=== PATIENT | female | born 1990 | race Caucasian/White ===

== ENCOUNTER 2018-06-29 20:18 | Observation (INO) ==
--- NOTE | 2018-06-29 21:30 | Emergency Department Note ---
Disposition Clinical Impression: Depression Qualifiers: Depression Type: major depressive disorder Major depression recurrence: single episode Active/Remission status: currently active Major depression episode severity: mild Qualified Code(s): F32.0 - Major depressive disorder, single episode, mild Disposition: Still a Patient Referrals: NONE,PCP [Primary Care Provider] - Forms: ED Satisfaction Letter Time of Disposition: 23:53 General Adult HPI - General Chief complaint: ED Psychiatric Symptoms Stated complaint: "SI" Time Seen by Provider: 06/29/18 20:36 Source: patient Mode of arrival: ambulatory Limitations: no limitations - History of Present Illness HPI Narrative: This is a 28-year-old female who comes to emergency department reporting suicidal thoughts that are primarily associated with fear. She states she is living with a boyfriend that she refers to as her fiance, and that both she and her boyfriend are living with her sister. She states she has a history of opiate and methamphetamine use, and was clean for almost a 4 year until she and her boyfriend moved in with her sister earlier in 2018. She says that the sister has been using methamphetamine, and she started using amphetamines again as well. She says that the sister oftentimes puts her down and she feels very discouraged about it she feels like she might be better off if she went somewhere else. She apparently had another argument with her sister 2 days ago , that culminated in her her being arrested. She was released from [facility] earlier today. Pain Scale: 4 - Related Data Home Medications Medication Instructions Recorded Confirmed Gabapentin Enacarbil 10/19/15 Loratadine 10/19/15 Prenate Chewable Tablet 10/19/15 Prozac 10/19/15 10/19/15 Previous Rx's Medication Instructions Recorded Cefdinir [Omnicef] 300 mg PO BID #20 capsule 10/19/15 Ibuprofen [Motrin] 800 mg PO Q6-8H PRN #30 tablet 10/19/15 Ondansetron [Zofran] 8 mg PO TID PRN #9 tablet 10/19/15 Promethazine/Dextromethorphan 5 ml PO Q4H PRN #120 ml 10/19/15 [Promethazine-Dm Syrup] Allergies Allergy/AdvReac Type Severity Reaction Status Date / Time hydrocodone Allergy Swelling Verified 10/19/15 17:56 of Lip/Tongue/Throat All systems ED: reviewed and negative except as stated. Psychiatric: Reports: depression, suicidal thoughts Past Medical History - Past Medical History Medical history: Reports: no medical history Psychiatric history: Reports: anxiety, depression BUSINESS AND SERVICES INSTRUCTOR history: Reports: no BUSINESS AND SERVICES INSTRUCTOR history - Social History Smoking Status: Current every day smoker Smokeless Tobacco Status: No Alcohol use: Reports: none Drug use: Reports: marijuana, IV Drug Use Physical Exam - General Limitations: no limitations General appearance: alert, in no apparent distress - Head Head exam: atraumatic, normocephalic, normal inspection - Eye Eye exam: Present: normal appearance, PERRL, EOMI - Chest Chest inspection: Present: normal inspection, symmetric chest wall rise - Respiratory Respiratory exam: Present: normal lung sounds bilaterally - Cardiovascular Cardiovascular exam: Present: regular rate, normal rhythm, normal heart sounds - Abdominal Exam Abdominal exam: Present: soft, Non-Tender. Absent: tenderness, distention, guarding, rebound, rigidity - Extremities Exam Extremities exam: Present: normal inspection, full ROM. Absent: tenderness, pedal edema - Neurological Exam Neurological exam: Present: alert, oriented X3 - Psychiatric Psychiatric exam: Present: depressed, suicidal ideation, other (She reports insomnia with both difficulty getting to sleep and frequent awakenings, has normal appetite, appears to have enjoyable activities and is still looking forward to getting separate livingwith her boyfriend and possibly getting her 1- year-old son back from foster care.) - Skin Skin exam: Present: warm, dry, other (Multiple scarred areas of her veins because of prior IV drug use) Course Course Narrative: This is a 28-year-old female here with depression and suicidal ideation very nonsupportive living situation Vital Signs Temperature 98.2 F 06/29/18 20:27 Pulse Rate 101 06/29/18 20:27 Respiratory Rate 18 06/29/18 20:27 Blood Pressure 154/98 06/29/18 20:27 O2 Sat by Pulse Oximetry 100 06/29/18 20:27 Temperature 98.2 F 06/29/18 20:42 Pulse Rate 101 06/29/18 20:42 Respiratory Rate 18 06/29/18 20:42 Blood Pressure 154/98 06/29/18 20:42 O2 Sat by Pulse Oximetry 100 06/29/18 20:42 Oxygen Delivery Oxygen Delivery Room Air Medical Decision Making - MDM Narrative Medical decision making narrative: This is a 28-year-old female with an exam consistent with major depression and vague thoughts of suicide. She was interested and a psych consult. Psychiatry was called, but there are recommendation was not available at the time of signout to Dr. Ramirez. - Lab Data Lab results reviewed: Yes I reviewed the patient's lab results. Lab results narrative: CBC was unremarkable BMP was unremarkable UA was unremarkable Drug screen was positive for amphetamines Ethanol, Tylenol, and salicylates were low Result diagrams: 06/29/18 21:43 06/29/18 21:43 Lab Results 06/29/18 06/29/18 06/29/18 Range/Units 20:46 21:43 21:43 WBC 7.5 (4.3-11.1) K/mcL RBC 4.16 (3.82-4.97) M/mcL Hgb 12.1 (11.5-15.4) g/dL Hct 36.1 (35.3-44.9) % MCV 86.8 (83.0-100.0) fL MCH 29.1 (28.0-33.3) pg MCHC 33.5 (31.6-35.5) g/dL RDW 13.5 (11.5-14.5) % Plt Count 289 (140-400) K/mcL MPV 9.7 (9.4-12.4) fL Immature Gran % 0.3 (0-4) % Seg Neutrophils % 62.4 % Lymphocytes % 30.7 % Monocytes % 5.4 % Eosinophils % 0.8 % Basophils % 0.4 % Neutrophils # 4.7 (1.6-8.9) K/mcL Lymphocytes # 2.3 (0.6-4.6) K/mcL Monocytes # 0.4 (0.0-1.3) K/mcL Eosinophils # 0.1 (0.0-0.6) K/mcL Basophils # 0.0 (0.0-0.2) K/mcL Sodium 140 (136-145) mEq/L Potassium 3.6 (3.5-5.1) mEq/L Chloride 104 (98-107) mEq/L Carbon Dioxide 24 (23-29) mEq/L BUN 7 (6-20) mg/dL Creatinine 0.82 (0.60-1.20) mg/dL Est GFR ( Amer) > 60 (> 60) Est GFR (Non-Af Amer) > 60 (> 60) BUN/Creatinine Ratio 9 (6-26) Glucose 103 (70-105) mg/dL Calculated Osmolality 288 (280-300) Calcium 9.1 (8.6-10.3) mg/dL Urine Color Yellow (Yellow) Urine Clarity Cloudy A (Clear) Urine pH 6.0 (5.0-8.0) pH Units Ur Specific [place] 1.019 (1.010-1.025) Urine Protein Trace (Neg-Trace) mg/dL Urine Glucose (UA) Normal (Normal) mg/dL Urine Ketones Negative (Negative) mg/dL Urine Blood Negative (Negative) Urine Nitrite Negative (Negative) Urine Bilirubin Negative (Negative) Urine Urobilinogen Normal (Normal) mg/dL Ur Leukocyte Esterase Negative (Negative) Urine Microscopic RBC 0-3 (0-3) per hpf Urine Microscopic WBC 3-5 H (0-3) per hpf Ur Squamous Epith Cells Many H (None-Few) per lpf Urine Bacteria Few (None-Few) per hpf Salicylates < 2.5 L (15.0-30.0) mg/dL Urine Opiates Screen (Ifzzkd=345) ng/mL Acetaminophen < 10 L (10-20) mcg/mL Ur Barbiturates Screen (Pbfaul=084) ng/mL Ur Phencyclidine Scrn (Cutoff=25) ng/mL Ur Amphetamines Screen (Itnivr=1657) ng/mL U Benzodiazepines Scrn (Ipenqy=927) ng/mL Urine Cocaine Screen (Cutoff= 300) ng/mL U Marijuana (THC) Screen (Cutoff = 50) ng/mL Ur Drug Screen Interp Ethyl Alcohol < 10 (Less than 10) mg/dL 06/29/18 Range/Units 22:59 WBC (4.3-11.1) K/mcL RBC (3.82-4.97) M/mcL Hgb (11.5-15.4) g/dL Hct (35.3-44.9) % MCV (83.0-100.0) fL MCH (28.0-33.3) pg MCHC (31.6-35.5) g/dL RDW (11.5-14.5) % Plt Count (140-400) K/mcL MPV (9.4-12.4) fL Immature Gran % (0-4) % Seg Neutrophils % % Lymphocytes % % Monocytes % % Eosinophils % % Basophils % % Neutrophils # (1.6-8.9) K/mcL Lymphocytes # (0.6-4.6) K/mcL Monocytes # (0.0-1.3) K/mcL Eosinophils # (0.0-0.6) K/mcL Basophils # (0.0-0.2) K/mcL Sodium (136-145) mEq/L Potassium (3.5-5.1) mEq/L Chloride (98-107) mEq/L Carbon Dioxide (23-29) mEq/L BUN (6-20) mg/dL Creatinine (0.60-1.20) mg/dL Est GFR ( Amer) (> 60) Est GFR (Non-Af Amer) (> 60) BUN/Creatinine Ratio (6-26) Glucose (70-105) mg/dL Calculated Osmolality (280-300) Calcium (8.6-10.3) mg/dL Urine Color (Yellow) Urine Clarity (Clear) Urine pH (5.0-8.0) pH Units Ur Specific [place] (1.010-1.025) Urine Protein (Neg-Trace) mg/dL Urine Glucose (UA) (Normal) mg/dL Urine Ketones (Negative) mg/dL Urine Blood (Negative) Urine Nitrite (Negative) Urine Bilirubin (Negative) Urine Urobilinogen (Normal) mg/dL Ur Leukocyte Esterase (Negative) Urine Microscopic RBC (0-3) per hpf Urine Microscopic WBC (0-3) per hpf Ur Squamous Epith Cells (None-Few) per lpf Urine Bacteria (None-Few) per hpf Salicylates (15.0-30.0) mg/dL Urine Opiates Screen Negative (Xynjuf=961) ng/mL Acetaminophen (10-20) mcg/mL Ur Barbiturates Screen Negative (Hjjosx=361) ng/mL Ur Phencyclidine Scrn Negative (Cutoff=25) ng/mL Ur Amphetamines Screen Positive H (Dsaihy=6082) ng/mL U Benzodiazepines Scrn Negative (Erncpm=137) ng/mL Urine Cocaine Screen Negative (Cutoff= 300) ng/mL U Marijuana (THC) Screen Negative (Cutoff = 50) ng/mL Ur Drug Screen Interp See Below Ethyl Alcohol (Less than 10) mg/dL Critical Care Time Critical Care Time: No
[2018-06-29 21:57] LABS: Basophils % 0.4 %; Eosinophils # 0.1 K/mcL (0.0-0.6); Eosinophils % 0.8 %; Hematocrit 36.1 % (35.3-44.9); Hemoglobin 12.1 g/dL (11.5-15.4); Immature Granulocytes % 0.3 % (0-4); Lymphocytes # 2.3 K/mcL (0.6-4.6); Lymphocytes % 30.7 %; Mean Corpuscular HGB Conc 33.5 g/dL (31.6-35.5); Mean Corpuscular Hemoglobin 29.1 pg (28.0-33.3); Mean Corpuscular Volume 86.8 fL (83.0-100.0); Mean Platelet Volume 9.7 fL (9.4-12.4); Monocytes # 0.4 K/mcL (0.0-1.3); Monocytes % 5.4 %; Neutrophils # 4.7 K/mcL (1.6-8.9); Platelet Count 289 K/mcL (140-400); Red Blood Count 4.16 M/mcL (3.82-4.97); Red Cell Distribution Width 13.5 % (11.5-14.5); Segmented Neutrophils % 62.4 %
[2018-06-29 22:22] LABS: Bilirubin,Urine Negative (Negative); Blood,Urine Negative (Negative); Clarity,Urine Cloudy (Clear); Color,Urine Yellow (Yellow); Glucose,Urine (UA) Normal (Normal); Ketones,Urine Negative (Negative); Protein,Urine Trace mg/dL (Neg-Trace); Specific Gravity,Urine 1.019 (1.010-1.025)
[2018-06-29 22:23] LABS: Leukocyte Esterase,Urine Negative (Negative); Nitrite,Urine Negative (Negative); Urobilinogen,Urine Normal (Normal)
[2018-06-29 22:28] LABS: RBC,Urine 0-3 per hpf (0-3)
[2018-06-29 22:29] LABS: Bacteria,Urine Few per hpf (None-Few); Squamous Epithelial Cell,Urine Many per lpf (None-Few)
[2018-06-29 22:30] LABS: Acetaminophen < 10 mcg/mL (10-20); BUN/Creatinine Ratio 9 (6-26); Blood Urea Nitrogen 7 mg/dL (6-20); Calcium 9.1 mg/dL (8.6-10.3); Carbon Dioxide 24 mEq/L (23-29); Chloride 104 mEq/L (98-107); Ethanol < 10 mg/dL (Less than 10); Glucose 103 mg/dL (70-105); Osmolality,Calculated 288 (280-300); Potassium 3.6 mEq/L (3.5-5.1); Salicylate < 2.5 mg/dL (15.0-30.0); Sodium 140 mEq/L (136-145); eGFR For Non-African Americans > 60 (> 60)
[2018-06-29 23:46] LABS: Amphetamine Screen,Urine Positive ng/mL (Cutoff=1000); Barbiturate Screen,Urine Negative ng/mL (Cutoff=200); Benzodiazepines Screen,Urine Negative ng/mL (Cutoff=200); Cannabinoid Screen,Urine Negative ng/mL (Cutoff = 50); Cocaine Screen,Urine Negative ng/mL (Cutoff= 300); Opiate Screen,Urine Negative ng/mL (Cutoff=300); Phencyclidine Screen,Urine Negative ng/mL (Cutoff=25)
--- NOTE | 2018-06-30 00:06 | Emergency Department Note ---
Disposition Clinical Impression: Depression Qualifiers: Depression Type: major depressive disorder Major depression recurrence: single episode Active/Remission status: currently active Major depression episode severity: mild Qualified Code(s): F32.0 - Major depressive disorder, single episode, mild Disposition: Admitted As Inpatient Condition: Good Instructions: Depression (ED) Referrals: NONE,PCP [Primary Care Provider] - Forms: ED Satisfaction Letter Time of Disposition: 00:06 General Adult HPI - General Chief complaint: ED Psychiatric Symptoms Stated complaint: "SI" Time Seen by Provider: 06/29/18 20:36 Source: patient Mode of arrival: ambulatory Limitations: no limitations - History of Present Illness HPI Narrative: This is a note for disposition purposes only. Exm and other details on prior note Pain Scale: 4 - Related Data Home Medications Medication Instructions Recorded Confirmed Gabapentin Enacarbil 10/19/15 Loratadine 10/19/15 Prenate Chewable Tablet 10/19/15 Prozac 10/19/15 10/19/15 Previous Rx's Medication Instructions Recorded Cefdinir [Omnicef] 300 mg PO BID #20 capsule 10/19/15 Ibuprofen [Motrin] 800 mg PO Q6-8H PRN #30 tablet 10/19/15 Ondansetron [Zofran] 8 mg PO TID PRN #9 tablet 10/19/15 Promethazine/Dextromethorphan 5 ml PO Q4H PRN #120 ml 10/19/15 [Promethazine-Dm Syrup] Allergies Allergy/AdvReac Type Severity Reaction Status Date / Time hydrocodone Allergy Swelling Verified 10/19/15 17:56 of Lip/Tongue/Throat Psychiatric: Reports: depression, suicidal thoughts Past Medical History - Past Medical History Medical history: Reports: no medical history Psychiatric history: Reports: anxiety, depression TRAFFIC ASSISTANT history: Reports: no TRAFFIC ASSISTANT history - Social History Smoking Status: Current every day smoker Smokeless Tobacco Status: No Alcohol use: Reports: none Drug use: Reports: marijuana, IV Drug Use Physical Exam - General Limitations: no limitations General appearance: alert, in no apparent distress Course Vital Signs Temperature 98.2 F 06/29/18 20:27 Pulse Rate 101 06/29/18 20:27 Respiratory Rate 18 06/29/18 20:27 Blood Pressure 154/98 06/29/18 20:27 O2 Sat by Pulse Oximetry 100 06/29/18 20:27 Temperature 98.2 F 06/29/18 20:42 Pulse Rate 101 06/29/18 20:42 Respiratory Rate 18 06/29/18 20:42 Blood Pressure 154/98 06/29/18 20:42 O2 Sat by Pulse Oximetry 100 06/29/18 20:42 Oxygen Delivery Oxygen Delivery Room Air Medical Decision Making - Lab Data Result diagrams: 06/29/18 21:43 06/29/18 21:43 Lab Results 06/29/18 06/29/18 06/29/18 Range/Units 20:46 21:43 21:43 WBC 7.5 (4.3-11.1) K/mcL RBC 4.16 (3.82-4.97) M/mcL Hgb 12.1 (11.5-15.4) g/dL Hct 36.1 (35.3-44.9) % MCV 86.8 (83.0-100.0) fL MCH 29.1 (28.0-33.3) pg MCHC 33.5 (31.6-35.5) g/dL RDW 13.5 (11.5-14.5) % Plt Count 289 (140-400) K/mcL MPV 9.7 (9.4-12.4) fL Immature Gran % 0.3 (0-4) % Seg Neutrophils % 62.4 % Lymphocytes % 30.7 % Monocytes % 5.4 % Eosinophils % 0.8 % Basophils % 0.4 % Neutrophils # 4.7 (1.6-8.9) K/mcL Lymphocytes # 2.3 (0.6-4.6) K/mcL Monocytes # 0.4 (0.0-1.3) K/mcL Eosinophils # 0.1 (0.0-0.6) K/mcL Basophils # 0.0 (0.0-0.2) K/mcL Sodium 140 (136-145) mEq/L Potassium 3.6 (3.5-5.1) mEq/L Chloride 104 (98-107) mEq/L Carbon Dioxide 24 (23-29) mEq/L BUN 7 (6-20) mg/dL Creatinine 0.82 (0.60-1.20) mg/dL Est GFR ( Amer) > 60 (> 60) Est GFR (Non-Af Amer) > 60 (> 60) BUN/Creatinine Ratio 9 (6-26) Glucose 103 (70-105) mg/dL Calculated Osmolality 288 (280-300) Calcium 9.1 (8.6-10.3) mg/dL Urine Color Yellow (Yellow) Urine Clarity Cloudy A (Clear) Urine pH 6.0 (5.0-8.0) pH Units Ur Specific [place] 1.019 (1.010-1.025) Urine Protein Trace (Neg-Trace) mg/dL Urine Glucose (UA) Normal (Normal) mg/dL Urine Ketones Negative (Negative) mg/dL Urine Blood Negative (Negative) Urine Nitrite Negative (Negative) Urine Bilirubin Negative (Negative) Urine Urobilinogen Normal (Normal) mg/dL Ur Leukocyte Esterase Negative (Negative) Urine Microscopic RBC 0-3 (0-3) per hpf Urine Microscopic WBC 3-5 H (0-3) per hpf Ur Squamous Epith Cells Many H (None-Few) per lpf Urine Bacteria Few (None-Few) per hpf Salicylates < 2.5 L (15.0-30.0) mg/dL Urine Opiates Screen (Kbpkom=887) ng/mL Acetaminophen < 10 L (10-20) mcg/mL Ur Barbiturates Screen (Jnfjeq=240) ng/mL Ur Phencyclidine Scrn (Cutoff=25) ng/mL Ur Amphetamines Screen (Enlwor=7567) ng/mL U Benzodiazepines Scrn (Pkkums=699) ng/mL Urine Cocaine Screen (Cutoff= 300) ng/mL U Marijuana (THC) Screen (Cutoff = 50) ng/mL Ur Drug Screen Interp Ethyl Alcohol < 10 (Less than 10) mg/dL 06/29/18 Range/Units 22:59 WBC (4.3-11.1) K/mcL RBC (3.82-4.97) M/mcL Hgb (11.5-15.4) g/dL Hct (35.3-44.9) % MCV (83.0-100.0) fL MCH (28.0-33.3) pg MCHC (31.6-35.5) g/dL RDW (11.5-14.5) % Plt Count (140-400) K/mcL MPV (9.4-12.4) fL Immature Gran % (0-4) % Seg Neutrophils % % Lymphocytes % % Monocytes % % Eosinophils % % Basophils % % Neutrophils # (1.6-8.9) K/mcL Lymphocytes # (0.6-4.6) K/mcL Monocytes # (0.0-1.3) K/mcL Eosinophils # (0.0-0.6) K/mcL Basophils # (0.0-0.2) K/mcL Sodium (136-145) mEq/L Potassium (3.5-5.1) mEq/L Chloride (98-107) mEq/L Carbon Dioxide (23-29) mEq/L BUN (6-20) mg/dL Creatinine (0.60-1.20) mg/dL Est GFR ( Amer) (> 60) Est GFR (Non-Af Amer) (> 60) BUN/Creatinine Ratio (6-26) Glucose (70-105) mg/dL Calculated Osmolality (280-300) Calcium (8.6-10.3) mg/dL Urine Color (Yellow) Urine Clarity (Clear) Urine pH (5.0-8.0) pH Units Ur Specific [place] (1.010-1.025) Urine Protein (Neg-Trace) mg/dL Urine Glucose (UA) (Normal) mg/dL Urine Ketones (Negative) mg/dL Urine Blood (Negative) Urine Nitrite (Negative) Urine Bilirubin (Negative) Urine Urobilinogen (Normal) mg/dL Ur Leukocyte Esterase (Negative) Urine Microscopic RBC (0-3) per hpf Urine Microscopic WBC (0-3) per hpf Ur Squamous Epith Cells (None-Few) per lpf Urine Bacteria (None-Few) per hpf Salicylates (15.0-30.0) mg/dL Urine Opiates Screen Negative (Neglww=581) ng/mL Acetaminophen (10-20) mcg/mL Ur Barbiturates Screen Negative (Sxlumj=961) ng/mL Ur Phencyclidine Scrn Negative (Cutoff=25) ng/mL Ur Amphetamines Screen Positive H (Dcfyol=5809) ng/mL U Benzodiazepines Scrn Negative (Hljhzv=597) ng/mL Urine Cocaine Screen Negative (Cutoff= 300) ng/mL U Marijuana (THC) Screen Negative (Cutoff = 50) ng/mL Ur Drug Screen Interp See Below Ethyl Alcohol (Less than 10) mg/dL
[2018-06-30] MEDS ORDERED: *HR* LORazepam 1 MG TABLET PO PRN (01:05)
[2018-06-30] MEDS ORDERED: Mag Hydrox/Al Hydrox/Simeth 30 ML UDC PO PRN (01:05)
[2018-06-30] MEDS ORDERED: MOM Conc 10 ML UD.LIQ PO PRN (01:05)
[2018-06-30] MEDS ORDERED: *HR* LORazepam 2 MG/ML VIAL IM PRN (01:05)
[2018-06-30] MEDS ORDERED: traZODone 50 MG TABLET PO PRN (01:05)
[2018-06-30] MEDS ORDERED: Ibuprofen 400 MG TABLET PO PRN (01:05)
[2018-06-30] MEDS ORDERED: hydrOXYzine pamoate 25 MG CAPSULE PO PRN (01:05)
[2018-06-30] MEDS ORDERED: Haloperidol Lactate 5 MG/ML VIAL IM PRN (01:05)
--- NOTE | 2018-06-30 04:42 | Emergency Department Note ---
Disposition Clinical Impression: Depression Qualifiers: Depression Type: major depressive disorder Major depression recurrence: single episode Active/Remission status: currently active Major depression episode severity: mild Qualified Code(s): F32.0 - Major depressive disorder, single episode, mild Disposition: Admitted As Inpatient Condition: Good General Adult HPI - General Chief complaint: ED Psychiatric Symptoms Stated complaint: "SI" Time Seen by Provider: 06/29/18 20:36 Source: patient Mode of arrival: ambulatory Limitations: no limitations - History of Present Illness Pain Scale: 0 - Related Data Home Medications Medication Instructions Recorded Confirmed Gabapentin Enacarbil 10/19/15 Loratadine 10/19/15 Prenate Chewable Tablet 10/19/15 Prozac 10/19/15 10/19/15 Previous Rx's Medication Instructions Recorded Cefdinir [Omnicef] 300 mg PO BID #20 capsule 10/19/15 Ibuprofen [Motrin] 800 mg PO Q6-8H PRN #30 tablet 10/19/15 Ondansetron [Zofran] 8 mg PO TID PRN #9 tablet 10/19/15 Promethazine/Dextromethorphan 5 ml PO Q4H PRN #120 ml 10/19/15 [Promethazine-Dm Syrup] Allergies Allergy/AdvReac Type Severity Reaction Status Date / Time hydrocodone Allergy Swelling Verified 10/19/15 17:56 of Lip/Tongue/Throat Psychiatric: Reports: depression, suicidal thoughts Past Medical History - Past Medical History Medical history: Reports: no medical history Surgical history: Reports: , cholecystectomy Psychiatric history: Reports: anxiety, depression PIPE AND TANK FABRICATOR history: Reports: no PIPE AND TANK FABRICATOR history - Social History Smoking Status: Current every day smoker Smokeless Tobacco Status: No Alcohol use: Reports: none Drug use: Reports: marijuana, IV Drug Use Physical Exam - General Limitations: no limitations General appearance: alert, in no apparent distress Course Course Narrative: This patient was signed out to me at shift change from Dr. aparicio. Please refer to his note for complete details of the history and physical examination. At shift change patient is awaiting psychiatric evaluation by the [address] psychiatry service. Patient was seen and evaluated by the [address] psychiatry services and is being admitted to the [address] psychiatric unit. Vital Signs Temperature 98.2 F 06/29/18 20:27 Pulse Rate 101 06/29/18 20:27 Respiratory Rate 18 06/29/18 20:27 Blood Pressure 154/98 06/29/18 20:27 O2 Sat by Pulse Oximetry 100 06/29/18 20:27 Temperature 98.2 F 06/29/18 20:42 Pulse Rate 101 06/29/18 20:42 Respiratory Rate 20 06/30/18 00:17 Blood Pressure 132/90 06/30/18 00:17 O2 Sat by Pulse Oximetry 100 06/29/18 20:42 Oxygen Delivery Oxygen Delivery Room Air Medical Decision Making - Lab Data Result diagrams: 06/29/18 21:43 06/29/18 21:43 Lab Results 06/29/18 06/29/18 06/29/18 Range/Units 20:46 20:46 21:43 WBC 7.5 (4.3-11.1) K/mcL RBC 4.16 (3.82-4.97) M/mcL Hgb 12.1 (11.5-15.4) g/dL Hct 36.1 (35.3-44.9) % MCV 86.8 (83.0-100.0) fL MCH 29.1 (28.0-33.3) pg MCHC 33.5 (31.6-35.5) g/dL RDW 13.5 (11.5-14.5) % Plt Count 289 (140-400) K/mcL MPV 9.7 (9.4-12.4) fL Immature Gran % 0.3 (0-4) % Seg Neutrophils % 62.4 % Lymphocytes % 30.7 % Monocytes % 5.4 % Eosinophils % 0.8 % Basophils % 0.4 % Neutrophils # 4.7 (1.6-8.9) K/mcL Lymphocytes # 2.3 (0.6-4.6) K/mcL Monocytes # 0.4 (0.0-1.3) K/mcL Eosinophils # 0.1 (0.0-0.6) K/mcL Basophils # 0.0 (0.0-0.2) K/mcL Sodium (136-145) mEq/L Potassium (3.5-5.1) mEq/L Chloride (98-107) mEq/L Carbon Dioxide (23-29) mEq/L BUN (6-20) mg/dL Creatinine (0.60-1.20) mg/dL Est GFR ( Amer) (> 60) Est GFR (Non-Af Amer) (> 60) BUN/Creatinine Ratio (6-26) Glucose (70-105) mg/dL Calculated Osmolality (280-300) Calcium (8.6-10.3) mg/dL Urine Color Yellow (Yellow) Urine Clarity Cloudy A (Clear) Urine pH 6.0 (5.0-8.0) pH Units Ur Specific [place] 1.019 (1.010-1.025) Urine Protein Trace (Neg-Trace) mg/dL Urine Glucose (UA) Normal (Normal) mg/dL Urine Ketones Negative (Negative) mg/dL Urine Blood Negative (Negative) Urine Nitrite Negative (Negative) Urine Bilirubin Negative (Negative) Urine Urobilinogen Normal (Normal) mg/dL Ur Leukocyte Esterase Negative (Negative) Urine Microscopic RBC 0-3 (0-3) per hpf Urine Microscopic WBC 3-5 H (0-3) per hpf Ur Squamous Epith Cells Many H (None-Few) per lpf Urine Bacteria Few (None-Few) per hpf Urine Test Negative (Negative) Salicylates (15.0-30.0) mg/dL Urine Opiates Screen (Jrpgzs=430) ng/mL Acetaminophen (10-20) mcg/mL Ur Barbiturates Screen (Oycavk=996) ng/mL Ur Phencyclidine Scrn (Cutoff=25) ng/mL Ur Amphetamines Screen (Hbtwri=7049) ng/mL U Benzodiazepines Scrn (Qxgzhs=250) ng/mL Urine Cocaine Screen (Cutoff= 300) ng/mL U Marijuana (THC) Screen (Cutoff = 50) ng/mL Ur Drug Screen Interp Ethyl Alcohol (Less than 10) mg/dL 06/29/18 06/29/18 Range/Units 21:43 22:59 WBC (4.3-11.1) K/mcL RBC (3.82-4.97) M/mcL Hgb (11.5-15.4) g/dL Hct (35.3-44.9) % MCV (83.0-100.0) fL MCH (28.0-33.3) pg MCHC (31.6-35.5) g/dL RDW (11.5-14.5) % Plt Count (140-400) K/mcL MPV (9.4-12.4) fL Immature Gran % (0-4) % Seg Neutrophils % % Lymphocytes % % Monocytes % % Eosinophils % % Basophils % % Neutrophils # (1.6-8.9) K/mcL Lymphocytes # (0.6-4.6) K/mcL Monocytes # (0.0-1.3) K/mcL Eosinophils # (0.0-0.6) K/mcL Basophils # (0.0-0.2) K/mcL Sodium 140 (136-145) mEq/L Potassium 3.6 (3.5-5.1) mEq/L Chloride 104 (98-107) mEq/L Carbon Dioxide 24 (23-29) mEq/L BUN 7 (6-20) mg/dL Creatinine 0.82 (0.60-1.20) mg/dL Est GFR ( Amer) > 60 (> 60) Est GFR (Non-Af Amer) > 60 (> 60) BUN/Creatinine Ratio 9 (6-26) Glucose 103 (70-105) mg/dL Calculated Osmolality 288 (280-300) Calcium 9.1 (8.6-10.3) mg/dL Urine Color (Yellow) Urine Clarity (Clear) Urine pH (5.0-8.0) pH Units Ur Specific [place] (1.010-1.025) Urine Protein (Neg-Trace) mg/dL Urine Glucose (UA) (Normal) mg/dL Urine Ketones (Negative) mg/dL Urine Blood (Negative) Urine Nitrite (Negative) Urine Bilirubin (Negative) Urine Urobilinogen (Normal) mg/dL Ur Leukocyte Esterase (Negative) Urine Microscopic RBC (0-3) per hpf Urine Microscopic WBC (0-3) per hpf Ur Squamous Epith Cells (None-Few) per lpf Urine Bacteria (None-Few) per hpf Urine Test (Negative) Salicylates < 2.5 L (15.0-30.0) mg/dL Urine Opiates Screen Negative (Tmjwcp=724) ng/mL Acetaminophen < 10 L (10-20) mcg/mL Ur Barbiturates Screen Negative (Muqqep=539) ng/mL Ur Phencyclidine Scrn Negative (Cutoff=25) ng/mL Ur Amphetamines Screen Positive H (Pkqhfo=3803) ng/mL U Benzodiazepines Scrn Negative (Mqcsbc=367) ng/mL Urine Cocaine Screen Negative (Cutoff= 300) ng/mL U Marijuana (THC) Screen Negative (Cutoff = 50) ng/mL Ur Drug Screen Interp See Below Ethyl Alcohol < 10 (Less than 10) mg/dL
[2018-06-30 09:53] VITALS: BP 124/92
[2018-06-30] MEDS ORDERED: Nicotine 2 MG GUM BC PRN (10:57)
[2018-06-30] MEDS ORDERED: FLUoxetine 20 MG CAPSULE PO SCH (13:15)
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
== END 2018-06-30 14:55 | disposition home or self-care (01) ==
LOC: 1ANU 20:18 → EMEROOARM 20:18 → 1ANU 06-30 00:20
PROVIDERS: ADMIT Psychiatry & Neurology Forensic Psychiatry; ATTEND Psychiatry & Neurology Forensic Psychiatry

== ENCOUNTER 2019-05-31 11:20 | Inpatient (IN) ==
[~2019-05-31 11:20] MED LIST: *HR* Oxytocin 10 UNIT/ML VIAL IM ONE
[2019-05-31] MEDS ORDERED: Naloxone 0.4 MG/ML INJ IVP PRN (11:23)
[2019-05-31] MEDS ORDERED: Acetaminophen 325 MG TABLET PO PRN (11:27)
[2019-05-31] MEDS ORDERED: Oxytocin 20 units/ LR 1000 mL 20 UNIT/1,000 ML BAG IVC SCH (11:30)
--- NOTE | 2019-05-31 12:03 | OB/GYN History & Physical ---
Date of Encounter: 05/31/19 Time of Encounter: 11:48 Assessment and Plan (1) 37 weeks gestation of Current visit: Yes Status: Acute (2) Drug abuse during Current visit: Yes Status: Acute (3) Multiparity Current visit: Yes Status: Acute (4) Previous section Current visit: Yes Status: Acute (5) Tobacco use complicating Current visit: Yes Status: Acute Qualifiers: Trimester: third trimester Qualified Code(s): O99.333 - Smoking (tobacco) complicating , third trimester (6) Hepatitis C antibody positive in blood Current visit: Yes Status: Acute (7) Hx successful (vaginal after ), currently Current visit: Yes Status: Acute (8) Late care Current visit: Yes Status: Acute (9) Limited care in third trimester Current visit: Yes Status: Acute (10) Meconium in amniotic fluid Current visit: Yes Status: Acute (11) Spontaneous onset of labor Current visit: Yes Status: Acute Anticipate successful with EFM History of Present Illness Chief complaint: Patient presents with abdominal pain HPI: Ms. Klein is a 28 year old female G 4 P 2-0-1-2 at 37 4/7 weeks presented to labor and delivery with complaint of abdominal pain that began this morning. She denies any leaking fluid or vaginal bleeding. She reports good movement. She admits to heroin, methamphetamine, and subutex use. She smokes a half a pack a day. Her chart shows complications of subutex thru [place], Hepatitis C, previous c- section with successful , tobacco use in , positive UDS for Fentanyl amphetamine, late care, no custody of her other children. Past Med Surg Social Fam HX - Past Medical History Source: patient Medical history: no medical history Additional medical history: hep c antibody Psychiatric history: other - Past Surgical History Surgical History: , cholecystectomy, orthopedic, other (right wrist surgery) Additional surgical history: right wrist release - Social History Smoking Status: Current every day smoker Smokeless Tobacco Status: No Alcohol use: none Drug use: opiates, marijuana, methamphetamine, IV Drug Use - Family History Father Adopted: No Family Member Ethnicity: Non- Living Status: Hx Family Cardiac Disorders: Yes (CHF) Hx Family Respiratory Disorders: Yes (COPD) Hx Family Cancer: No Hx Family GI Disorders: No Hx Family Endocrine Disorder: Yes (Type 2) Hx Family Neuromuscular Disorders: No Hx Family Neurologic Disorders: No Hx Family HEENT Disorders: No Hx Family Autoimmune Disorders: No Obstetrical History - Pregnancies : 4 Para: 2 Term: 2 Ab's: 1 Livin - History/Complications History/Complications: no custody of her children, history of prior and successful Medications and Allergies Ibuprofen [Motrin] 800 mg PO Q6-8H PRN #30 tablet 10/19/15 [Rx] FLUoxetine HCl [Prozac] 20 mg PO DAILY 30 Days #30 capsule 06/30/18 [Rx] Allergy/AdvReac Type Severity Reaction Status Date / Time hydrocodone Allergy Swelling Verified 10/19/15 17:56 of Lip/Tongue/Throat Review of System OB All systems PM: reviewed and no additional remarkable complaints except as stated - Constitutional Constitutional ROS IM: no chills, no fatigue, no fever(s) - Cardiovascular Cardiovascular: no chest pain, no dyspnea - Gastrointestinal Gastrointestinal: abdominal pain, no nausea, no vomiting - Menstruation Menstruation: amenorrhea Exam - Constitutional Constitutional: well developed, well nourished, other (breathing and bearing down with contractions) - HEENT HEENT: EOMI - Lungs Respiratory exam: CTAB - Cardiovascular Cardiovascular exam: RRR - Abdomen Abdomen: Present: bowel sounds normal, gravid, diffuse tenderness - Vulva Vulva: bilateral: normal - Cervix Dilation: 10 Effacement: 100 Station: +2 - Uterus Uterus exam: Present: tender Results All other labs normal. - VTE Reasons for not Prescribing Prophylaxis: Treatment not Indicated - Low risk for VTE
--- NOTE | 2019-05-31 12:18 | OB/GYN Procedure Note ---
Delivery - Delivery Date: 05/31/19 Provider: Nayeli Collazo Intrapartum events: meconium, precipitous labor- <3hr Delivery induction: none Delivery monitor: external FHT Anesthesia: none Quantitated Blood Loss: 300 - (s) Infant A Infant Delivery Date: 05/31/19 Infant Delivery Time: 11:22 Position: ROP Route of delivery: Gender: Male Viability: Viable Pounds: 5 Ounces: 15 Weight Gram: 2.68 kg at 1 minute: 8 at 5 mins: 10 Shoulder Dystocia: not encountered Specimens collected: cord blood Placenta: spontaneous Cord: nuchal cord, 3 umbilical vessels, nuchal reduced - Repair Episiotomy: none Laceration Description: None - Complications Delivery complications: none Delivery comments: Called to room with patient complete and +2 station. Under maternal effort she delivered a viable male weighing 5 lbs. 15 oz. and Apgars 8 and 10 at one and 5 minutes respectively over an intact perineum. Following delivery of the head there was a loose nuchal cord noted and reduced. The shoulders delivered with maternal effort. Infant was placed on mom's abdomen. Cord was clamped and cut. Cord blood was collected. Placenta delivered spontaneously, complete, and intact with a three-vessel cord. Mother and recovering in the triage area in stable condition. - Disposition Mom disposition: stable in LDR disposition: stable in LDR
[2019-05-31] MEDS ORDERED: Lidocaine -MPF 2% 5 ML VIAL ONE (12:55)
[2019-05-31] MEDS ORDERED: Ringers Solution, Lactated 0 ML ONE (12:55)
[2019-05-31 12:57] LABS: Basophils % 0.3 %; Eosinophils % 0.2 %; Hematocrit 36.1 % (35.3-44.9); Hemoglobin 12.8 g/dL (11.5-15.4); Immature Granulocytes % 0.5 % (0-4); Lymphocytes # 1.7 K/mcL (0.6-4.6); Lymphocytes % 15.3 %; Mean Corpuscular HGB Conc 35.5 g/dL (31.6-35.5); Mean Corpuscular Hemoglobin 31.4 pg (28.0-33.3); Mean Corpuscular Volume 88.5 fL (83.0-100.0); Mean Platelet Volume 10.2 fL (9.4-12.4); Monocytes # 0.4 K/mcL (0.0-1.3); Monocytes % 3.4 %; Neutrophils # 8.8 K/mcL (1.6-8.9); Platelet Count 217 K/mcL (140-400); Red Blood Count 4.08 M/mcL (3.82-4.97); Red Cell Distribution Width 13.9 % (11.5-14.5); Segmented Neutrophils % 80.3 %
[2019-05-31] MEDS: Ibuprofen 600 MG TABLET PO PRN ×2 (13:02→21:00)
[2019-05-31] MEDS: *HR* Buprenorphine HCl 8 MG TAB.SUBL SL SCH ×2 (13:31→21:00)
[2019-05-31] MEDS ORDERED: *HR* Buprenorphine HCl 8 MG TAB.SUBL SL STA (13:32)
[2019-05-31] MEDS ORDERED: *HR* Labetalol 20 MG/4 ML SYRINGE IVP ONE (14:32)
[2019-05-31 18:46] LABS: Amphetamine Screen,Urine Positive ng/mL (Cutoff=1000); Barbiturate Screen,Urine Negative ng/mL (Cutoff=200); Benzodiazepines Screen,Urine Negative ng/mL (Cutoff=200); Cannabinoid Screen,Urine Negative ng/mL (Cutoff = 50); Cocaine Screen,Urine Negative ng/mL (Cutoff= 300); Opiate Screen,Urine Negative ng/mL (Cutoff=300); Phencyclidine Screen,Urine Negative ng/mL (Cutoff=25)
[2019-05-31] MEDS ORDERED: Ringers Solution, Lactated 1,000 ML ONE (19:37)
--- NOTE | 2019-06-01 08:48 | Discharge Summary ---
Date of Encounter: 06/01/19 Time of Encounter: 08:45 - Discharge Diagnosis (1) Vaginal delivery Priority: Primary Status: Acute Comments: Patient meeting day one milestones. Pain well-controlled with prescribed medications. Voiding without difficulty, tolerating regular diet, bleeding light. No bowel movement yet. Anticipate discharge today (2) Drug abuse during Priority: Secondary Status: Acute Comments: Social service consult placed (3) Hepatitis C antibody positive in blood Priority: Secondary Status: Acute (4) Hx successful (vaginal after ), currently Priority: Secondary Status: Acute Comments: Successful this (5) Tobacco use complicating Priority: Secondary Status: Acute Qualifiers: Trimester: third trimester Qualified Code(s): O99.333 - Smoking (tobacco) complicating , third trimester - Discharge Medications Prescriptions: New Acetaminophen [Tylenol] 650 mg PO Q6HR PRN tablet PRN Reason: Mild Pain Ibuprofen [Motrin] 600 mg PO Q6HR PRN #60 tablet PRN Reason: Cramping Docusate [Colace] 100 mg PO BID capsule Continued Buprenorphine HCl [Subutex] 16 mg SL DAILY Home Medications: Buprenorphine HCl [Subutex] 16 mg SL DAILY 05/31/19 [History] Acetaminophen [Tylenol] 650 mg PO Q6HR PRN tablet 06/01/19 [Rx] Docusate [Colace] 100 mg PO BID capsule 06/01/19 [Rx] Ibuprofen [Motrin] 600 mg PO Q6HR PRN #60 tablet 06/01/19 [Rx] Allergies/Adverse Reactions: Allergy/AdvReac Type Severity Reaction Status Date / Time No Known Allergies Allergy Verified 05/31/19 12:54 Data Procedures and tests throughout hospitalization: Laboratory Tests 05/31/19 05/31/19 12:38 18:00 WBC 11.0 RBC 4.08 Hgb 12.8 Hct 36.1 MCV 88.5 MCH 31.4 MCHC 35.5 RDW 13.9 Plt Count 217 MPV 10.2 Immature Gran % 0.5 Seg Neutrophils % 80.3 Lymphocytes % 15.3 Monocytes % 3.4 Eosinophils % 0.2 Basophils % 0.3 Neutrophils # 8.8 Lymphocytes # 1.7 Monocytes # 0.4 Eosinophils # 0.0 Basophils # 0.0 Urine Opiates Screen Negative Ur Buprenorphine Scrn Positive H Ur Barbiturates Screen Negative Ur Phencyclidine Scrn Negative Ur Amphetamines Screen Positive H U Benzodiazepines Scrn Negative Urine Cocaine Screen Negative U Marijuana (THC) Screen Negative Ur Drug Screen Interp See Below Labs on day of discharge: Labs from last 24 hours 05/31/19 05/31/19 18:00 12:38 WBC 11.0 RBC 4.08 Hgb 12.8 Hct 36.1 MCV 88.5 MCH 31.4 MCHC 35.5 RDW 13.9 Plt Count 217 MPV 10.2 Immature Gran % 0.5 Seg Neutrophils % 80.3 Lymphocytes % 15.3 Monocytes % 3.4 Eosinophils % 0.2 Basophils % 0.3 Neutrophils # 8.8 Lymphocytes # 1.7 Monocytes # 0.4 Eosinophils # 0.0 Basophils # 0.0 Urine Opiates Screen Negative Ur Buprenorphine Scrn Positive H Ur Barbiturates Screen Negative Ur Phencyclidine Scrn Negative Ur Amphetamines Screen Positive H U Benzodiazepines Scrn Negative Urine Cocaine Screen Negative U Marijuana (THC) Screen Negative Ur Drug Screen Interp See Below Preliminary micro results at discharge 05/31/19 11:27 Placental Culture - Preliminary Placenta 05/31/19 11:50 Placental Culture - Preliminary Placenta 05/31/19 11:27 Anaerobic Culture - Preliminary Placenta Culture is incubating. Date of admission: 05/31/19 11:20 Primary care physician: PCP NONE Consults: 05/31/19 11:24 Consult to [employer] Tester ([facility]) [CONS] Routine Reason For Exam: Reason for SW Consult: subutex/heroin use 05/31/19 11:27 Consult to Rivet Sorter [CONS] Routine Comment: Vaginal delivery, consult needed Consult to [employer] Tester [CONS] Routine Reason for SW Consult: subutex/heroin use in Discharging clinician: America Lucero Anticipated date of discharge: 06/01/19 - Patient Status Disposition: Home, Self-Care Condition: Good Functional capacity at discharge: independent ambulation - Discharge Instructions Follow Up With: NONE,PCP [Primary Care Provider] - Ting Cardona DO [Partnered Physician] - - Diet and Activity Activity: resume usual activities as tolerated Diet: regular diet Hospital Course Reason for admission: active labor Delivery: other () Episiotomy: none Laceration: none Other procedures: none complications: none Discharge diagnosis: IUP at term delivered [place] baby: male Hospital course: Delivery Date: 05/31/19 Provider: Nayeli Collazo Intrapartum events: meconium, precipitous labor- <3hr Delivery induction: none Delivery monitor: external FHT Anesthesia: none Quantitated Blood Loss: 300 - (s) A Infant Delivery Date: 05/31/19 Infant Delivery Time: 11:22 Position: ROP Route of delivery: Gender: Male Viability: Viable Pounds: 5 Ounces: 15 Weight Gram: 2.68 kg at 1 minute: 8 at 5 mins: 10 Shoulder Dystocia: not encountered Specimens collected: cord blood Placenta: spontaneous Cord: nuchal cord, 3 umbilical vessels, nuchal reduced - Repair Episiotomy: none Laceration Description: None - Complications Delivery complications: none Delivery comments: Called to room with patient complete and +2 station. Under maternal effort she delivered a viable male weighing 5 lbs. 15 oz. and Apgars 8 and 10 at one and 5 minutes respectively over an intact perineum. Following delivery of the head there was a loose nuchal cord noted and reduced. The shoulders delivered with maternal effort. Infant was placed on mom's abdomen. Cord was clamped and cut. Cord blood was collected. Placenta delivered spontaneously, complete, and intact with a three-vessel cord. Mother and recovering in the triage area in stable condition. - Disposition Mom disposition: stable in LDR disposition: stable in LDR Time Attestation: Total time spent providing and/or coordinating discharge services: Time Spent: Less than 30 minutes Exam - Constitutional Vitals: Temp Pulse Resp BP Pulse Ox 98.1 F 74 18 125/75 100 06/01/19 04:00 06/01/19 04:00 06/01/19 04:00 06/01/19 04:00 06/01/19 04:00 General appearance IM: A&O X 3, pleasant, no acute distress, answers questions appropriately - Respiratory Respiratory exam: Present: CTAB. Absent: respiratory distress - Cardiovascular Cardiovascular exam IM: Present: RRR, +S1, +S2. Absent: irregular rhythm - GI/Abdominal GI/Abdominal exam IM: normal bowel sounds, soft - Rectal Rectal exam: deferred - External exam: normal external exam Uterine Tone: Firm Uterus Position: 1 Finger Below Umbilicus, Midline - Extremities Exam Extremities exam IM: Present: full ROM, normal capillary refill, normal inspection. Absent: calf tenderness - Neurological Exam Neurological exam: alert, normal gait, oriented X3
[2019-06-01 08:56] VITALS: BP 129/79
[2019-06-01] MEDS ORDERED: Prenatal Vit/FA 1 EACH TABLET PO SCH (09:00)
[2019-06-01] MEDS: *HR* Buprenorphine HCl 8 MG TAB.SUBL SL SCH (09:01)
[2019-06-01] MEDS: Ibuprofen 600 MG TABLET PO PRN (09:09)
== END 2019-06-01 13:30 | disposition home or self-care (01) | DRG 560 ==
LOC: 1NENULAB 11:20 → 1NENUOBS 14:45
PROVIDERS: ADMIT Advanced Practice Midwife; ATTEND Advanced Practice Midwife